=== PATIENT | female | born 1980 | race Caucasian/White ===

== ENCOUNTER 2024-06-17 10:20 | Inpatient (IN) ==
--- NOTE | 2024-07-08 10:30 | Anesthesiology Consultation ---
Date of Service July 08, 2024 Assessment & Plan (1) Encounter for pre-operative examination: Infectious disease screening: Per assessment on 07/08/24: No known recent infectious disease contacts or current infectious disease symptoms. Chart Review Chart Review: carpentry supervisor initiated History Surgery Operation Date: 07/18/24 10:30 Proposed Procedures p Section (Devlivery of Baby Through Abdominal Incision) - Nadine Jama DO s with Bilateral Tubal Ligation - Nadine Jama, Height/Weight Height: 5 ft 4 in Weight: 111.13 kg Allergies Allergy/AdvReac Type Severity Reaction Status Date / Time morphine AdvReac Intermediate Itching Verified 07/08/24 09:28 naproxen AdvReac Unknown Ulcer Verified 07/08/24 09:28 Medications Home Medications Medication Instructions Recorded Confirmed Last Taken cetirizine 10 mg tablet (Zyrtec) 10 mg PO BID 07/08/24 07/08/24 Unknown diphenhydramine HCl 25 mg capsule 50 mg PO HS PRN Insomnia 07/08/24 07/08/24 Unknown (Benadryl) fluticasone propionate 50 1 spray intranasal BID 07/08/24 07/08/24 Unknown mcg/actuation nasal spray,suspension vit no.95-ferrous 1 tab PO QAM 07/08/24 07/08/24 Unknown fumarate 28 mg-folic acid 800 mcg tablet ( Multivitamins) Past Medical History Medical History Adverse effect of anesthesia "Complete panic" + combative with D&C/cholecystectomy anesthesia emergence Gestational diabetes mellitus (GDM) affecting , antepartum Headache History of blood transfusion with section (2004) Morbid obesity Sleep apnea No device TBI (traumatic brain injury) "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 Aunt Breast cancer Grandfather Lung disease Grandmother (Maternal) Myocardial infarction Denies family history of Ovarian cancer Prostate cancer Colorectal cancer Past Surgical History Surgical History Hx of section S/P cholecystectomy S/P dilation and curettage S/P wisdom tooth extraction Social History Smoking Status: Never smoker Do You Dip or Chew Tobacco: No Hx Alcohol Use: No Hx Substance Use: No substance use type: does not use
--- NOTE | 2024-07-12 17:14 | History & Physical Report ---
Date of Service July 12, 2024 Assessment & Plan (1) Encounter for pre-operative examination: Plan: Plan for section at 37w d/t MFM recommendations d/t T-incision on uterus. She also desires bilateral tubal sterilization. Reviewed consent in detail in of [facility]. Will plan for 2u PRBC available, as she has h/o hemorrhage. History of Present Illness Chief Complaint: Scheduled repeat section, tubal sterilization Primary Care Provider: Yeni Figueroa, DO 44yo with EDC 08/08/24. and Delivery Plans AMA>40@del *Anatomy Scan @ 20wks * Echo [id number] 05/10/24----normal *Growth scan @32wks *Weekly NST's @36 wks *Twice weekly NST @38wks *Weekly LYUDMILA's @38wks *Deliver by 40 wks Obesity (BMI between 35-39 @ beginning of ) *Growth US @ 32 wks *Weekly NSTs @ 36wks Prior history of PPH / Transfusion Prior history of *WITH T-INCISION* Patient and recall being told she required an abnormal incision, like a "CROSS" in her uterus. They recall being told future deliveries MUST be via . Pathology report for placenta from 10/30/2005 quotes "LTCS" as post op diagnosis, but is not the op report, and [place] the [place] occurred / did not have access to the op reports per patient and FOB. M consult - Rec. delivery via C/S at 36wks-37wd, Discussed at [facility]: No . Proposed C/S at 37wks on 07/18 C/S SCHEDULED ON 07/18/[address] LEIGHANN RAMIRES WITH DR. STEVE HORTON TO ASSIST. GDM at 20 weeks *Begin monthly Growth US's @24wks *has not been able to start checking sugars (as of 06/17) *given this will treat as insulin GDM *start weekly nsts. now and then twices weekly at 36. Allergies Allergy/AdvReac Type Severity Reaction Status Date / Time morphine AdvReac Intermediate Itching Verified 07/12/24 14:01 naproxen AdvReac Unknown Ulcer Verified 07/12/24 14:01 Home Medications Medication Instructions Recorded Confirmed Type cetirizine 10 mg tablet (Zyrtec) 10 mg PO BID 07/08/24 07/12/24 History diphenhydramine HCl 25 mg capsule 50 mg PO HS PRN Insomnia 07/08/24 07/12/24 History (Benadryl) fluticasone propionate 50 1 spray intranasal BID 07/08/24 07/12/24 History mcg/actuation nasal spray,suspension vit no.95-ferrous 1 tab PO QAM 07/08/24 07/12/24 History fumarate 28 mg-folic acid 800 mcg tablet ( Multivitamins) Patient History Medical History Adverse effect of anesthesia "Complete panic" + combative with D&C/cholecystectomy anesthesia emergence Gestational diabetes mellitus (GDM) affecting , antepartum Headache History of blood transfusion with section (2004) Morbid obesity Sleep apnea No device TBI (traumatic brain injury) "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 Aunt Breast cancer Grandfather Lung disease Grandmother (Maternal) Myocardial infarction Denies family history of Ovarian cancer Prostate cancer Colorectal cancer Social History (Updated 12/24/23 @ 11:07 by Francoise Berkowitz RN) Smoking Status: Never smoker Second Hand Exposure: No; Do You Dip or Chew Tobacco: No; Hx Alcohol Use: No Hx Substance Use: No Preferred Language: Ukrainian Communication Ability: Effective Post Production Assistant Required: No Beliefs That Will Affect Care: None marital status: marital status details: Socartes [place] [phone] Current Living Situation: Spouse Current Living Situation Comment: lives with spouse, son, 2 kids current occupational status: employed current occupation: [employer] Feels Safe at Home: Yes Assistive Devices: Glasses Review of Systems All systems reviewed & are unremarkable except as noted in HPI & below Physical Exam Constitutional: WD/WN, vitals as above Respiratory: normal respiratory effort, lungs clear to auscultation no respiratory distress Cardiovascular: Rate/Rhythm: regular rate and regular rhythm Gastrointestinal (Abdomen): Inspection/Auscultation: abdomen normal to inspection Percussion/Palpation: abdomen soft; abdomen nontender Gravid. No s/s chorio or abruption. Skin: no rashes, warm and dry Psychiatric: A+Ox3, euthymic affect Coding Level of Care Code None Diagnoses Encounter for pre-operative examination Z01.818
[2024-07-18] MEDS ORDERED: CITRIC ACID/SODIUM CITRATE 15 ML UDC PO SCH (06:00)
[2024-07-18] MEDS: LACTATED RINGER'S 1,000 ML IV SCH ×2 (10:02→11:44)
[2024-07-18] MEDS ORDERED: LACTATED RINGER'S 1,000 ML IV SCH (10:45)
[2024-07-18] MEDS: ACETAMINOPHEN 500 MG TAB PO SCH (10:51)
[2024-07-18] MEDS ORDERED: ACETAMINOPHEN 500 MG TAB PO SCH (11:00)
[2024-07-18 11:14] LABS: Basophils # (auto) 0.04 K/uL (0.00-0.20); Basophils % (auto) 0.5 %; Eosinophils # (auto) 0.31 K/uL (0.00-0.50); Eosinophils % (auto) 3.5 %; Hematocrit (blood only) 29.2 % (37.0-47.0); Hemoglobin 9.3 g/dl (12.0-16.0); Immature Granulocytes # (auto) 0.04 K/uL (0.01-0.20); Immature Granulocytes % (auto) 0.5 %; Lymphocytes % (auto) 19.1 %; Mean Corpuscular Hemoglobin 27.1 pg (25.0-34.0); Mean Corpuscular Hgb Conc 31.8 g/dL (32.0-36.0); Mean Corpuscular Volume 85.1 fL (80.0-100.0); Mean Platelet Volume 8.5 fL (9.4-12.4); Monocytes # (auto) 0.52 K/uL (0.11-0.59); Monocytes % (auto) 5.9 %; Neutrophils # (auto) 6.27 K/uL (1.40-6.50); Neutrophils % (auto) 70.5 %; Platelet Count 280 K/uL (130-400); RDW Coefficient of Variation 14.8 % (11.5-14.5); RDW Standard Deviation 45.5 fL (36.4-46.3); Red Blood Count 3.43 M/uL (4.20-5.40); White Blood Count 8.88 K/ul (4.8-10.8)
[2024-07-18] MEDS ORDERED: SODIUM CHLORIDE 0.9% 250 ML IV PRN ×2 (11:18→20:12)
[2024-07-18] MEDS ORDERED: Nursing to Pharmacy Communication SCH (11:30)
[2024-07-18] MEDS ORDERED: MoRPHine SULFATE PF 1 MG/ML 10 ML AMP/VIAL ONE (12:14)
[2024-07-18] MEDS: CITRIC ACID/SODIUM CITRATE 15 ML UDC PO SCH (12:41)
[2024-07-18] MEDS: ceFAZolin 3,000 MG/72.5 ML BAG IV SCH (12:41)
[2024-07-18] MEDS ORDERED: diphenhydrAMINE 50 MG/ML VIAL IV PRN (12:52)
[2024-07-18] MEDS ORDERED: LACTATED RINGER'S 500 ML IV PRN (12:52)
[2024-07-18] MEDS ORDERED: NALOXONE HCL 0.4 MG/1 ML VIAL/CARP IV PRN (12:52)
[2024-07-18] MEDS ORDERED: MoRPHine SULFATE 2 MG/ML CARP IV PRN (12:52)
[2024-07-18] MEDS ORDERED: DROPERIDOL 5 MG/2 ML VIAL IV PRN (12:52)
[2024-07-18] MEDS ORDERED: MEPERIDINE HCL 25 MG/ML CARP/VIAL IV PRN (12:52)
[2024-07-18] MEDS ORDERED: NALOXONE HCL 1 MG in SODIUM CHLORIDE 0.9% 1,000 ML IV PRN (12:52)
[2024-07-18] MEDS ORDERED: HYDROmorphone INJ 0.5 MG/0.5 ML SYR IV PRN (12:52)
[2024-07-18] MEDS ORDERED: NALOXONE HCL 0.08 MG in SYRINGE 1.8 ML IV PRN (12:52)
[2024-07-18] MEDS ORDERED: NALBUPHINE HCL INJ 10 MG/ML AMP IV PRN (12:52)
--- NOTE | 2024-07-18 12:56 | History & Physical Bridge Note ---
Date of Service July 18, 2024 History & Physical Bridge Note I have examined the patient, reviewed the History & Physical and in the interval since the performance of the History & Physical I have noted the following changes of clinical significance: no changes noted - proceed to OR for repeat section and tubal sterilization.
[2024-07-18] MEDS ORDERED: NO NARCOTICS OR SEDATIVES SCH (13:00)
[2024-07-18] MEDS ORDERED: DC INTRASPINAL MORPHINE SCH (13:00)
[2024-07-18] MEDS ORDERED: PHENYLEPHRINE HCL 25 MG/250 ML NSS IV ONE (13:24)
[2024-07-18] MEDS ORDERED: OXYTOCIN 10 UNITS/ML VIAL ONE ×3 (13:33→15:00)
[2024-07-18 14:23] LABS: Base Excess Cord Venous Blood -12.2 mEq/L (-7.7-1.9); Cord Venous Blood HCO3 21 mmol/L (18.4-26.8); Cord Venous Blood PCO2 82 mmHg (30.4-57.2); Cord Venous Blood PO2 < 20 mmHg (14.1-43.3); Cord Venous Blood pH 7.02 (7.20-7.44); O2 Saturation Cord Venous Bld < 60.0 % (<68)
[2024-07-18] MEDS ORDERED: METHYLENE BLUE 0.5% 10 ML VIAL ONE (14:26)
[2024-07-18 14:28] LABS: Base Excess Cord Arterial Bld -12.7 mEq/L (-9-1.8); CO2 Cord Arterial Blood 82 mmHg (39.1-73.5); HCO3 Cord Arterial Blood 21 mmol/L (19.7-28.5); Oxygen Sat Cord Arterial Blood < 60.0 % (<60); PO2 Cord Arterial Blood < 20 mmHg (4.1-31.7); pH Cord Arterial Blood 7.01 (7.1-7.38)
[2024-07-18] MEDS ORDERED: fentaNYL citrate PF 100 MCG/2 ML VIAL ONE ×2 (14:38→15:24)
[2024-07-18] MEDS ORDERED: ONDANSETRON INJ 2 MG/ML 2 ML VIAL ONE (14:39)
--- NOTE | 2024-07-18 15:54 | Operative Report ---
Post Operative Report Pre & Post Diagnosis Operation Date: 07/18/24 10:30 Pre-Op Diagnosis: History of Previous Section, T-incision Post-Op Diagnosis: Same; Delivery of a live female child at 1346 I identified the patient and participated in the time-out.: Yes Procedure Operation Date: 07/18/24 10:30 Actual Procedures p Low transverse Section with vertical T-extension of both hysterotomy and skin incisions - Nadine Jama DO s with Bilateral Tubal Ligation - Nadine Jama DO Surgeon Nadine Jama DO Geothermal Operations Engineer S Summer CABRALES Quantitative Blood Loss (QBL) 1351 Findings Consistent with Post-Op Diagnosis Significant adhesive disease - anterior uterus adhesions to anterior peritoneal wall. Specimens placenta, cord blood, cord gas Drains monteiro, clear yellow Anesthesia Type Spinal Complications none Disposition Accompanied Patient To Recovery: No Disposition: L&D Indications 44yo @ 37 0/7, h/o T-incision of uterus, obesity, gestational diabetes, desire for sterilization Description of Procedure The patient was seen in her labor and delivery room, risks benefits and alternatives to surgery were reviewed. Informed consent obtained. Questions were answered. She was taken to the operating room, spinal anesthesia was administered. She was then prepared and draped in the usual sterile fashion in the supine position with a leftward tilt. Timeout was confirmed. A Pfannenstiel skin incision was made with a scalpel, and carried through to the underlying layer of fascia. Fascia was nicked at midline, and this incision was extended bilaterally. The superior aspect of the fascial incision was grasped with Mariya clamps x2, elevated off the underlying rectus abdominis muscles, and dissected sharply and bluntly. In similar fashion, the inferior aspect of the fascial incision was dissected. The rectus abdominis muscles were , and the peritoneum was entered bluntly digitally. Significant adhesive disease encountered, uterus to peritoneal wall, careful lysis of adhesions performed. The bladder flap was taken down carefully using Metzenbaum scissors. Using a new scalpel, a low transverse uterine incision was created. Clear amniotic fluid noted. Malposition of baby - transverse with head to maternal right, back down. Multiple attempts were made for delivery, unsuccessful - therefore skin and uterus T-incision created, baby ultimately delivered from breech presentation. The cord was doubly clamped and cut, and the was handed off to the waiting processing supervisor. A segment was retained for cord gases. Cord blood was obtained. Spontaneous cry at nursery cart. The placenta was delivered spontaneously intact. The uterus was exteriorized, and cleared of all clots and debris. The vertical incision was reapproximated with 3 layers - 2 layers of 0-Vicryl, followed by 2-0 Vicryl serosal stitch. The hysterotomy incision was reapproximated using 0 Vicryl in a running locked stitch. Posterior uterus was evaluated and normal. Right fallopian tube identified to fimbria, transected from mesosalpinx with Ligasure. Left fallopian tube was adherent to ovary in such a way that entire tube could not be removed - approximately 2cm of tube removed, sent to path. The uterus was returned to the abdomen, and gutters were cleared of clots and debris. Surgifoam was placed across hysterotomy, and Perclot was placed on the raw surfaces of adhesion lysis on anterior uterus. Excellent hemostasis was observed. The vertical fascial incision was reapproximated using 0-PDS, followed by pfannensteil with a 0 Vicryl in a running stitch. The subcutaneous tissue was irrigated, and reapproximated using 2-0 plain gut in a running stitch. The skin was reapproximated using hiren. 1% plain lidocaine used for pain control at this point. Bandage applied. The patient tolerated the procedure well, and wi ll be taken to the recovery area in stable and good condition. I attest to the content of the Intraoperative Record and any orders documented therein. Any exceptions are noted below. OB Procedure Charges [id number] [id number] Add on Tubal for C/S
[2024-07-18] MEDS: KETOROLAC 30 MG/ML VIAL IV PRN (16:15)
[2024-07-18] MEDS: ONDANSETRON INJ 2 MG/ML 2 ML VIAL IV PRN (16:55)
--- NOTE | 2024-07-18 17:08 | Anesthesiology Progress Note ---
Date of Service July 18, 2024 Anesthesia Post Procedure Vital Signs Vital Signs: Temp Pulse Resp BP Pulse Ox O2 Del Method 07/18/24 17:06 56 L 89 L 07/18/24 17:05 70 94 07/18/24 17:01 61 113/55 L 07/18/24 17:00 59 L 94 07/18/24 16:55 72 99 07/18/24 16:51 92 H 119/67 07/18/24 16:50 36.4 C L 61 18 113/55 L 07/18/24 16:50 94 H 99 07/18/24 16:45 77 98 07/18/24 16:41 73 105/64 07/18/24 16:40 73 18 105/64 07/18/24 16:40 72 99 07/18/24 16:39 59 L 90 07/18/24 16:35 98 07/18/24 16:35 67 07/18/24 16:35 64 119/56 L 07/18/24 16:34 68 75/53 L 07/18/24 16:30 36.5 C 64 16 119/56 L 07/18/24 16:30 64 95 07/18/24 16:25 57 L 95 07/18/24 16:24 54 L 111/51 L 07/18/24 16:23 60 91 07/18/24 16:20 36.5 C 64 16 95 07/18/24 16:20 71 99 07/18/24 16:16 66 94 07/18/24 16:15 73 119/57 L 99 07/18/24 16:10 16 07/18/24 16:10 97 H 99 07/18/24 16:06 68 118/56 L 07/18/24 16:05 68 98 07/18/24 16:00 36.7 C 57 L 16 95 07/18/24 16:00 64 98 07/18/24 15:55 80 96 07/18/24 15:50 36.6 C 71 16 99 07/18/24 15:50 82 99 07/18/24 15:47 105 H 154/78 H 07/18/24 11:46 75 122/65 07/18/24 11:30 18 07/18/24 11:30 18 07/18/24 11:25 36.9 C 07/18/24 09:27 36.8 C 18 Room Air 07/18/24 09:00 18 07/18/24 09:00 36.8 C 18 07/18/24 08:49 83 123/77 Pain Intensity Abdomen: Pain Intensity: 1 Transfer of Care Handoff Completed per policy Notes Mental Status: alert / awake / arousable and participated in evaluation Nausea / Vomiting: adequately controlled Pain: adequately controlled Airway Patency, RR, SpO2: stable & adequate BP & HR: stable & adequate Hydration State: stable & adequate Neuraxial Anesthesia: was administered and sensory block is resolving Anesthetic Complications: no major complications apparent and Pt Satisfied with anesthetic care
[2024-07-18] MEDS ORDERED: BENZOCAINE 20% SPRY 85 APPLN/85 GM CAN EXT PRN (17:12)
[2024-07-18] MEDS ORDERED: MAGNESIUM HYDROXIDE SUSP 30 ML UDC PO PRN (17:12)
[2024-07-18] MEDS ORDERED: HYDROCORTISONE ACETATE 25 MG SUPP PR PRN (17:12)
[2024-07-18] MEDS ORDERED: CALCIUM CARBONATE 500 MG CHEWABLE TAB PO PRN (17:12)
[2024-07-18] MEDS: ePHEDrine sulfate 50 MG/ML AMP IV PRN (17:41)
[2024-07-18] MEDS: LACTATED RINGER'S 500 ML IV ONE (18:02)
[2024-07-18] MEDS: DIPHTHER/TETAN/PERTUS Vaccine (Tdap, Adol/Adult) 0.5mL IM ONE (18:04)
[2024-07-18] MEDS: SIMETHICONE 80 MG CHEW PO SCH (18:05)
[2024-07-18] MEDS: OXYTOCIN 30 UNITS/LR 1,003 ML IV SCH (18:07)
[2024-07-18 18:40] LABS: Hematocrit (blood only) 28.2 % (37.0-47.0); Hemoglobin 8.9 g/dl (12.0-16.0); Mean Corpuscular Hemoglobin 27.4 pg (25.0-34.0); Mean Corpuscular Hgb Conc 31.6 g/dL (32.0-36.0); Mean Corpuscular Volume 86.8 fL (80.0-100.0); Mean Platelet Volume 8.4 fL (9.4-12.4); Platelet Count 235 K/uL (130-400); RDW Coefficient of Variation 14.8 % (11.5-14.5); Red Blood Count 3.25 M/uL (4.20-5.40)
[2024-07-18] MEDS: ACETAMINOPHEN 325 MG TAB PO SCH (19:59)
[2024-07-18] MEDS: IBUPROFEN 600 MG TAB PO SCH (20:00)
[2024-07-18] MEDS: CETIRIZINE HCL 10 MG TABLET PO SCH (20:08)
[2024-07-18] MEDS: DOCUSATE SODIUM 100 MG CAP PO SCH (20:08)
[2024-07-18] MEDS: FLUTICASONE PROPIONATE NA SPR 16 GM BTL SCH (20:09)
--- NOTE | 2024-07-18 20:22 | Obstetrical Progress Note ---
Date of Service July 18, 2024 Assessment & Plan Admission and Anticipated Discharge Date Admission Date: July 18, 2024 Subjective Patient awake and talking in room. Her appearance is pale. At this time, she is feeling okay, however was feeling woozy and weak after section. Vital stable, most recent blood pressure 113/62, pulse 76. Pain well- controlled. Has some nausea, is tolerating p.o. liquids but not food at this time. Urine output 100 cc over 3 hours -urine in Blake is clear yellow. Hemoglobin today starting 9.3, after section 8.9. Incision bandage is clean and dry. Scant lochia on pad. Approximately 1300 blood loss during surgery, her history of hemorrhage needing transfusion, and hemoglobin drop below 9 with expectation that it will continue to drop as labs equilibrate, I offered patient blood transfusion. She is in agreement, and we discussed consent in detail. Will plan to transfuse 2 units packed red cells, recheck hemoglobin at midnight and again in the morning. Continue to monitor urine output and vital signs and patient condition. Results & Data Vital Signs (Past 12 Hours) Vital Signs Temp Pulse Resp BP Pulse Ox O2 Del Method 07/18/24 20:10 77 100 07/18/24 20:09 74 113/62 07/18/24 20:05 78 100 07/18/24 20:00 73 100 07/18/24 19:59 77 115/63 07/18/24 19:55 80 100 07/18/24 19:50 80 100 07/18/24 19:49 73 125/62 07/18/24 19:45 88 100 07/18/24 19:40 62 100 07/18/24 19:39 61 115/58 L 07/18/24 19:35 73 98 07/18/24 19:30 98 07/18/24 19:30 78 07/18/24 19:30 76 127/60 07/18/24 19:25 77 97 07/18/24 19:20 84 98 07/18/24 19:19 73 109/56 L 07/18/24 19:15 98 07/18/24 19:15 80 07/18/24 19:15 76 90 07/18/24 19:10 67 99 07/18/24 19:09 69 110/58 L 07/18/24 19:05 70 100 07/18/24 19:00 76 97 07/18/24 18:59 80 112/60 07/18/24 18:55 61 100 07/18/24 18:50 36.6 C 76 16 97 07/18/24 18:50 62 99 07/18/24 18:49 87 115/68 07/18/24 18:45 82 100 07/18/24 18:40 61 100 07/18/24 18:39 62 107/60 07/18/24 18:35 60 99 07/18/24 18:30 100 07/18/24 18:30 82 07/18/24 18:30 70 108/56 L 07/18/24 18:25 95 H 100 07/18/24 18:21 90 109/57 L 07/18/24 18:20 36.5 C 95 H 18 100 07/18/24 18:20 92 H 100 07/18/24 18:19 84 117/51 L 07/18/24 18:15 83 100 07/18/24 18:10 111 H 100 07/18/24 18:09 87 128/58 L 07/18/24 18:05 75 100 07/18/24 18:00 77 100 07/18/24 17:55 69 99 07/18/24 17:51 62 100/58 L 07/18/24 17:50 36.6 C 83 16 100 07/18/24 17:50 68 100 07/18/24 17:45 68 114/59 L 100 07/18/24 17:40 75 100 07/18/24 17:35 56 L 100 07/18/24 17:32 58 L 90/52 L 07/18/24 17:30 72 100 07/18/24 17:27 59 L 88 L 07/18/24 17:25 57 L 98 07/18/24 17:23 36.6 C 16 07/18/24 17:23 65 92/50 L 07/18/24 17:21 68 90/53 L 07/18/24 17:20 73 86/49 L 99 07/18/24 17:15 55 L 95 07/18/24 17:10 60 93/51 L 90 07/18/24 17:06 56 L 89 L 07/18/24 17:05 70 94 07/18/24 17:01 61 113/55 L 07/18/24 17:00 59 L 94 07/18/24 16:55 72 99 07/18/24 16:51 92 H 119/67 07/18/24 16:50 36.4 C L 55 L 16 95 07/18/24 16:50 36.4 C L 61 18 113/55 L 07/18/24 16:50 94 H 99 07/18/24 16:45 77 98 07/18/24 16:41 73 105/64 07/18/24 16:40 73 18 105/64 07/18/24 16:40 72 99 07/18/24 16:39 59 L 90 07/18/24 16:35 98 07/18/24 16:35 67 07/18/24 16:35 64 119/56 L 07/18/24 16:34 68 75/53 L 07/18/24 16:30 36.5 C 64 16 119/56 L 07/18/24 16:30 64 95 07/18/24 16:25 57 L 95 07/18/24 16:24 54 L 111/51 L 07/18/24 16:23 60 91 07/18/24 16:20 36.5 C 64 16 95 07/18/24 16:20 71 99 07/18/24 16:16 66 94 07/18/24 16:15 73 119/57 L 99 07/18/24 16:10 16 07/18/24 16:10 97 H 99 07/18/24 16:06 68 118/56 L 07/18/24 16:05 68 98 07/18/24 16:00 36.7 C 57 L 16 95 07/18/24 16:00 64 98 07/18/24 15:55 80 96 07/18/24 15:50 36.6 C 71 16 99 07/18/24 15:50 82 99 07/18/24 15:47 105 H 154/78 H 07/18/24 11:46 75 122/65 07/18/24 11:30 18 07/18/24 11:30 18 07/18/24 11:25 36.9 C 07/18/24 09:27 36.8 C 18 Room Air 07/18/24 09:00 18 07/18/24 09:00 36.8 C 18 07/18/24 08:49 83 123/77 PG Care Time/CCT Total # of Minutes Spent Total Time Spent with Patient: Total time spent is greater than 50% in coordination of care (as documented) at patient's floor/unit and/or counseling patient: Coding Level of Care Code None
[2024-07-19 00:20] LABS: Hematocrit (blood only) 27.8 % (37.0-47.0)
[2024-07-19] MEDS: LACTATED RINGER'S 1,000 ML IV SCH (03:57)
[2024-07-19] MEDS: MoRPHine SULFATE PF 1 MG/ML 10 ML AMP/VIAL INT SPINAL ONE (03:58)
[2024-07-19] MEDS: SODIUM CHLORIDE 0.9% 1,000 ML IV SCH (03:58)
[2024-07-19] MEDS: METHYLENE BLUE 0.5% 10 ML VIAL ONE (03:58)
[2024-07-19] MEDS: GELATIN SPONGE SZ 100 ONE (03:59)
[2024-07-19 06:19] LABS: Basophils # (auto) 0.03 K/uL (0.00-0.20); Basophils % (auto) 0.3 %; Eosinophils % (auto) 2.9 %; Hematocrit (blood only) 27.6 % (37.0-47.0); Hemoglobin 8.9 g/dl (12.0-16.0); Immature Granulocytes # (auto) 0.04 K/uL (0.01-0.20); Immature Granulocytes % (auto) 0.4 %; Lymphocytes # (auto) 1.27 K/uL (1.20-3.40); Lymphocytes % (auto) 12.4 %; Mean Corpuscular Hemoglobin 27.6 pg (25.0-34.0); Mean Corpuscular Hgb Conc 32.2 g/dL (32.0-36.0); Mean Corpuscular Volume 85.7 fL (80.0-100.0); Mean Platelet Volume 8.6 fL (9.4-12.4); Monocytes # (auto) 0.51 K/uL (0.11-0.59); Neutrophils # (auto) 8.06 K/uL (1.40-6.50); Platelet Count 198 K/uL (130-400); RDW Coefficient of Variation 14.8 % (11.5-14.5); RDW Standard Deviation 46.5 fL (36.4-46.3); Red Blood Count 3.22 M/uL (4.20-5.40); White Blood Count 10.21 K/ul (4.8-10.8)
[2024-07-19] MEDS ORDERED: PROMETHAZINE 12.5 MG/50.5 ML BAG IV PRN (06:53)
[2024-07-19] MEDS ORDERED: diphenhydrAMINE Capsule 25 MG CAP PO PRN (06:53)
[2024-07-19] MEDS ORDERED: HYDROmorphone INJ 0.5 MG/0.5 ML SYR IV PRN (06:53)
[2024-07-19] MEDS ORDERED: ONDANSETRON INJ 2 MG/ML 2 ML VIAL IV PRN (06:53)
[2024-07-19] MEDS ORDERED: diphenhydrAMINE 50 MG/ML VIAL IV PRN (06:53)
--- NOTE | 2024-07-19 07:29 | Obstetrical Progress Note ---
Date of Service July 19, 2024 Assessment & Plan (1) Delivery by section using T-shaped incision: Plan: 1st POD following Elective T incision C section for previous CS with T incision. Vertical incision in skin as well. Blake's continued; Monitor I/O strict. Bandage intact: Continue Bandage Ambulation encouraged; Bowel sound was sluggish this AM, she is tolerating diet, though. Will reassess in afternoon. Breast feed encouraged Continue Normal Ob diet Post transfusion Hb: 8.9 She will probably need more Blood transfusion after repeat Hb in next 24 hours. Continue IV fluids as well, continue oral intake. (2) Tubal ligation status: (3) Blood transfusion, without reported diagnosis: Admission and Anticipated Discharge Date Admission Date: July 18, 2024 Supervising Physician Co-Signing Physician Notes Resident Physician Supervision Note: I interviewed and examined the patient. Discussed with Dr. Brooks and agree with findings and plan as documented in the note. Any exceptions or clarifications are listed here: POD#1 s/p t-incision uterus and skin RLTCS. s/p 2u PRBCs, feeling much better. Urine output low but adequate. Will recheck H/H at lunchtime. Documented By: Nadine Jama, DO Subjective This am, Patient more comfortable than yesterday; she says. She was feeling woozy and weak after section. Had episodes of vomiting as well. Tolerated some cracker this AM. Vital stable: P:92/min; BP: 134/84 Pain well-controlled. Urine output 570 cc in total in 15 hours -urine in Blake is minimal and yellow. Hemoglobin post transfusion : 8.9 gm % Incision bandage is clean and dry. Scant lochia on pad.. Review of Systems Review of Systems: As per HPI Physical Exam Physical Exam: General: Alert and oriented. No acute distress. CV: Regular rate and rhythm. No murmurs. Respiratory: CTA bilaterally. No rhonchi, wheezes, or crackles. No increased work of breathing. Abdomen: Distended gaseous abdomen, Bowel sound sluggish Uterus: Fundus firm and palpable just below umbilicus. Surgical scar clean and healing well. Lower extremities: BL LE edema +. No deep calf pain. Pneumatic compression Insitu. Results & Data Vital Signs (Past 12 Hours) Vital Signs Temp Pulse Pulse Resp BP BP Pulse Ox 07/19/24 06:00 18 100 07/19/24 05:00 16 98 07/19/24 04:00 36.9 C 92 H 16 134/84 07/19/24 04:00 18 98 07/19/24 01:55 36.8 C 93 H 16 120/67 100 07/19/24 01:55 36.8 C 93 H 16 120/67 100 07/19/24 01:55 100 07/19/24 01:55 85 07/19/24 01:55 93 H 120/67 07/19/24 01:50 72 98 07/19/24 01:45 70 98 07/19/24 01:40 97 07/19/24 01:40 75 07/19/24 01:40 80 108/60 07/19/24 01:35 70 95 07/19/24 01:30 71 96 07/19/24 01:25 70 109/59 L 96 07/19/24 01:20 78 100 07/19/24 01:15 68 98 07/19/24 01:10 97 07/19/24 01:10 74 07/19/24 01:10 76 104/58 L 07/19/24 01:05 76 98 07/19/24 01:00 82 95 07/19/24 00:55 36.8 C 78 16 105/61 100 07/19/24 00:55 78 105/61 100 07/19/24 00:50 95 H 99 07/19/24 00:48 70 91 07/19/24 00:45 92 H 99 07/19/24 00:43 72 99/55 L 07/19/24 00:40 73 98 07/19/24 00:35 78 98 07/19/24 00:30 80 97 07/19/24 00:27 79 113/70 07/19/24 00:25 36.8 C 79 16 113/70 99 07/19/24 00:25 99 H 99 07/19/24 00:20 81 99 07/19/24 00:19 81 90 07/19/24 00:15 97 H 99 07/19/24 00:10 36.8 C 82 16 103/54 L 99 07/19/24 00:10 98 07/19/24 00:10 82 07/19/24 00:10 75 103/54 L 07/19/24 00:05 78 95 07/19/24 00:00 94 H 98 07/18/24 23:55 81 100 07/18/24 23:54 36.7 C 72 16 105/51 L 100 07/18/24 23:52 72 105/51 L 07/18/24 23:51 36.8 C 86 16 103/54 L 97 07/18/24 23:50 36.7 C 85 16 126/67 97 07/18/24 23:50 86 100 07/18/24 23:45 80 98 07/18/24 23:40 92 H 98 07/18/24 23:37 90 126/67 07/18/24 23:35 79 98 07/18/24 23:30 86 99 07/18/24 23:25 67 98 07/18/24 23:22 61 95/54 L 07/18/24 23:20 66 99 07/18/24 23:15 82 99 07/18/24 23:10 69 97 07/18/24 23:07 69 106/62 07/18/24 23:05 70 96 07/18/24 23:00 74 97 07/18/24 22:55 80 100 07/18/24 22:52 70 113/67 07/18/24 22:51 36.7 C 70 18 113/67 99 07/18/24 22:50 80 99 07/18/24 22:45 84 96 07/18/24 22:40 67 97 07/18/24 22:37 75 113/66 07/18/24 22:35 75 96 07/18/24 22:30 78 99 07/18/24 22:25 71 97 07/18/24 22:22 81 134/91 07/18/24 22:20 85 95 07/18/24 22:15 81 100 07/18/24 22:10 81 100 07/18/24 22:06 81 122/66 07/18/24 22:05 80 100 07/18/24 22:00 71 100 07/18/24 21:55 72 100 07/18/24 21:52 75 122/67 07/18/24 21:51 36.6 C 75 16 122/67 100 07/18/24 21:50 69 100 07/18/24 21:45 83 99 07/18/24 21:40 72 100 09/16/24 21:37 76 126/68 07/18/24 21:35 75 100 07/18/24 21:30 67 96 07/18/24 21:25 87 100 07/18/24 21:22 76 124/67 07/18/24 21:21 36.6 C 76 16 124/67 100 07/18/24 21:20 66 100 07/18/24 21:15 64 99 07/18/24 21:10 81 99 07/18/24 21:07 76 126/68 07/18/24 21:06 36.6 C 88 18 126/68 98 07/18/24 21:05 82 99 07/18/24 21:00 69 96 07/18/24 20:55 85 100 07/18/24 20:51 36.5 C 72 16 124/57 L 100 07/18/24 20:50 98 07/18/24 20:50 83 07/18/24 20:50 74 124/57 L 07/18/24 20:45 74 96 07/18/24 20:41 72 116/59 L 07/18/24 20:40 74 99 07/18/24 20:35 82 99 07/18/24 20:30 65 97 07/18/24 20:25 84 100 07/18/24 20:20 68 99 07/18/24 20:15 76 99 07/18/24 20:10 77 100 07/18/24 20:09 74 113/62 07/18/24 20:05 78 100 07/18/24 20:00 73 100 07/18/24 19:59 77 115/63 07/18/24 19:55 80 100 07/18/24 19:50 80 100 07/18/24 19:49 73 125/62 07/18/24 19:45 88 100 07/18/24 19:40 62 100 07/18/24 19:39 61 115/58 L 07/18/24 19:35 73 98 07/18/24 19:30 98 07/18/24 19:30 78 07/18/24 19:30 76 127/60 07/18/24 19:25 77 97 Resident Activity Tracking Resident Involvement: Resident Care Provided Care Provided: OB Delivery
[2024-07-19] MEDS: PRENATAL VITAMIN 1 TAB PO SCH (08:50)
[2024-07-19] MEDS: FERROUS SULFATE 325 MG TAB PO SCH (08:50)
[2024-07-19 12:07] LABS: Hematocrit (blood only) 26.3 % (37.0-47.0); Hemoglobin 8.8 g/dl (12.0-16.0)
[2024-07-19] MEDS: oxyCODONE HCL IR 5 MG TAB (IMMEDIATE RELEASE) PO PRN (13:45)
[2024-07-19] MEDS: bisacodyL 5 MG TABEC PO SCH (20:07)
[2024-07-20] MEDS: SENNA 8.6 MG TAB PO PRN
--- NOTE | 2024-07-20 07:47 | Obstetrical Progress Note ---
Date of Service July 20, 2024 Assessment & Plan (1) Delivery by section using T-shaped incision: Plan: 2nd POD following Elective T incision C section for previous CS with T incision. Vertical incision in skin as well. Bandage intact: Continue Bandage Ambulation encouraged; Bowel sound was sluggish this AM, she is tolerating diet, though. Passed Gas. Continue Normal Ob diet. Post transfusion Hb: 8.9----8.8 ( H and H sent this morning; wait for result) ? Dis tomorrow (2) Tubal ligation status: (3) Blood transfusion, without reported diagnosis: Admission and Anticipated Discharge Date Admission Date: July 18, 2024 Supervising Physician Co-Signing Physician Notes Resident Physician Supervision Note: I was present with [Name of resident] during the history and exam. I discussed the case with the resident and agree with the findings and plan as documented in the note. Any exceptions or clarifications are listed here: [None] Documented By: Nguyen Liao MD, FACOG Subjective Thi Am she is doing well. Passed urine after foleys out. Eating well. Vital stable: P:81; BP: 130/78 Pain well-controlled. Incision bandage is clean and dry. Scant lochia on pad. Review of Systems Review of Systems: As per HPI Physical Exam Physical Exam: General: Alert and oriented. No acute distress. CV: Regular rate and rhythm. No murmurs. Respiratory: CTA bilaterally. No rhonchi, wheezes, or crackles. No increased work of breathing. Abdomen: Distended gaseous abdomen, Bowel sound sluggish Uterus: Fundus firm and palpable just below umbilicus. Surgical scar clean and healing well. Vertical scar+ Lower extremities: BL LE edema +. No deep calf pain. Breast: Normal; not engorged Results & Data Vital Signs (Past 12 Hours) Vital Signs Temp Pulse Resp BP Pulse Ox O2 Del Method 07/20/24 00:00 36.7 C 81 18 130/78 97 Room Air Resident Activity Tracking Resident Involvement: Resident Care Provided Care Provided: OB Delivery
[2024-07-20 07:51] LABS: Hematocrit (blood only) 25.6 % (37.0-47.0); Hemoglobin 8.1 g/dl (12.0-16.0)
[2024-07-20] MEDS ORDERED: bisacodyL 10 MG SUPP PR PRN (16:04)
[2024-07-20 20:26] VITALS: RESP 18
[2024-07-20] MEDS: ACETAMINOPHEN 325 MG TAB PO PRN (23:31)
[2024-07-20] MEDS: IBUPROFEN 600 MG TAB PO PRN (23:31)
[2024-07-21 00:10] VITALS: O2SAT 98
--- NOTE | 2024-07-21 07:52 | Obstetrical Progress Note ---
Date of Service July 21, 2024 Assessment & Plan (1) Delivery by section using T-shaped incision: 44 yo POD 3 from repeat CS, doing well -Meeting all pp milestones -A+/rubella imm -f/u 6 weeks for appt, has staple removal appt tues. Stable for dc home Subjective Ambulation: ambulating normally Voiding: no voiding problems Passing Gas:: Yes Diet Tolerance:: regular diet Lochia:: Small Feeding Type:: breast feeding Pain well managed with medication Review of Systems Denies fevers, chills, n/v, GERONIMO, CP, SOB Physical Exam Constitutional WD/WN, vitals as above no acute distress Respiratory normal respiratory effort, lungs clear to auscultation Cardiovascular RRR, no murmur, no edema Gastrointestinal (Abdomen) Percussion/Palpation: abdomen soft; abdomen nontender fundus firm at umbilicus and NT. Incision closed w/ hiren, c/d/i Musculoskeletal BLE symmetric, nonerythematous, nontender Results & Data Vital Signs (Past 12 Hours) Vital Signs Temp Pulse Resp BP Pulse Ox O2 Del Method 07/21/24 00:00 98.2 F 83 18 135/84 98 Room Air
[2024-07-21 10:09] VITALS: BP 130/85; PULSE 77; TEMP 98.1
--- NOTE | 2024-07-22 17:54 | Discharge Summary ---
Date of Service July 22, 2024 Admission HPI Per Admitting Provider 44yo with EDC 08/08/24. and Delivery Plans AMA>40@del *Anatomy Scan @ 20wks * Echo [id number]-LHO 05/10/24----normal *Growth scan @32wks *Weekly NST's @36 wks *Twice weekly NST @38wks *Weekly LYUDMILA's @38wks *Deliver by 40 wks Obesity (BMI between 35-39 @ beginning of ) *Growth US @ 32 wks *Weekly NSTs @ 36wks Prior history of PPH / Transfusion Prior history of *WITH T-INCISION* Patient and recall being told she required an abnormal incision, like a "CROSS" in her uterus. They recall being told future deliveries MUST be via . Pathology report for placenta from 10/30/2005 quotes "LTCS" as post op diagnosis, but is not the op report, and the pathologist was [place] a [place] / location [place] the delivery occurred / did not have access to the op reports per patient and FOB. MFM consult - Rec. delivery via C/S at 36wks-37wd, Discussed at [facility]: No . Proposed C/S at 37wks on 07/18 C/S SCHEDULED ON 07/18/[address] NADINE JAMA WITH DR. STEVE HORTON TO ASSIST. GDM at 20 weeks *Begin monthly Growth US's @24wks *has not been able to start checking sugars (as of 06/17) *given this will treat as insulin GDM *start weekly nsts. now and then twices weekly at 36. Admission Exam (Per Admitting) Constitutional WD/WN, vitals as above Respiratory normal respiratory effort, lungs clear to auscultation no respiratory distress Cardiovascular Rate/Rhythm: regular rate and regular rhythm Gastrointestinal (Abdomen) Inspection/Auscultation: abdomen normal to inspection Percussion/Palpation: abdomen soft; abdomen nontender Skin no rashes, warm and dry Psychiatric A+Ox3, euthymic affect Discharge Data Consultations 07/18/24 10:43 Consult Anesthesiology Stat Procedures Performed Operation Date: 07/18/24 10:30 Actual Procedures p Section (Devlivery of Baby Through Abdominal Incision) - Nadine Jama, DO s with Bilateral Tubal Ligation - Nadine Jama DO Hospital Course (1) Delivery by section using T-shaped incision: 44 yo POD 3 from repeat CS, doing well -Meeting all pp milestones -A+/rubella imm -f/u 6 weeks for appt, has staple removal appt tues. Stable for dc home Coding Level of Care Code None Diagnoses Delivery by section using T-shaped incision O82
== END 2024-07-21 12:15 | disposition home or self-care (01) | DRG 785 ==
LOC: EDSTATUS 10:20 → 4S1 07-18 08:43 → 4E2 07-19 02:26
PROC: M.PPTLD (2024-07-18 10:30)